=== PATIENT | male | born 1970 | race African-American/Black ===

== ENCOUNTER 2019-03-29 18:45 | Emergency (ER) | payer OTHER ==
[~2019-03-29] VITALS: Ht 175.3 cm; Wt 136.1 kg
[2019-03-29] MEDS ORDERED: UNOBMED (18:56)
[2019-03-29 19:05] VITALS: BP 132/90
--- NOTE | 2019-03-29 19:07 | NUR ---
ED Nurse Note: ambulated in to ED due to increased pain in right wrist and left ankle after fall 2 days ago. pt states that he was at ED and was dx with sprin ankle and wrist but pain increased. +CSM. NAD noted
--- NOTE | 2019-03-29 19:09 | NUR ---
HAND-OFF: Report given to RUTHY Rivera.
[2019-03-29] MEDS ORDERED: Ketorolac 30mg Inj IM ONE (19:30)
--- NOTE | 2019-03-29 20:06 | Emergency Room Report ---
History of Present Illness General Chief Complaint: Pain Source: Patient Present Illness HPI 48 YO Male presents to the ED c/o persistent 8/10 in severity right wrist and left ankle pain. S/p mechanical fall 2 days ago. Pt. went to another ED and had imaging done. Pt. was told he had an ankle and wrist sprain and then only given phi wrap for his wrist. He reports he was not provided with and prescriptions upon discharge, and did not receive a work note. Pt. denies new trauma or fall. Pt. reports worsening of swelling to the right wrist/hand. Denies erythema or bruising. reports intermittent tingling/shooting pain sensation down the left foot. He describes falling forward after his foot got stuck under a rug and straining the top of his foot. pt. reports FOOSH. Denies obvious deformities. walking, palpation or use of his right wrist or left foot exacerbates his pain. Denies neck or back pain. Allergies: Coded Allergies: IODINE (Verified Allergy, Unknown, 03/29/19) Patient History Past Medical History: see triage record Past Surgical History: none Pertinent Family History: none Reviewed Nursing Documentation: PMH: Agreed; PSxH: Agreed Nursing Documentation-PMH Past Medical History: No History, Except For Hx Cardiac Problems: No Hx Hypertension: Yes Hx Pacemaker: No Hx Asthma: No Hx COPD: No Hx Diabetes: No Hx Cancer: No Hx Gastrointestinal Problems: No Hx Dialysis: No History Of Psychiatric Problem: No Hx Neurological Problems: No Hx Cerebrovascular Accident: No Hx Seizures: No Review of Systems All Other Systems: negative except mentioned in HPI Physical Exam Vital Signs Date Time Temp Pulse Resp B/P (MAP) Pulse Ox O2 Delivery O2 Flow Rate FiO2 03/29/19 18:52 98.1 75 16 132/90 (104) 98 Room Air Sp02 EP Interpretation: reviewed, normal General Appearance: no apparent distress, alert, GCS 15, non-toxic Head: normocephalic, atraumatic Eyes: bilateral eye normal inspection, bilateral eye PERRL ENT: hearing grossly normal, normal voice Neck: full range of motion Respiratory: lungs clear, normal breath sounds, speaking full sentences Cardiovascular #1: regular rate, rhythm, normal capillary refill Cardiovascular #2: 2+ radial (R), 2+ radial (L), 2+ dorsalis pedis (R), 2+ dorsalis pedis (L) Musculoskeletal: back normal, gait/station normal - compensatory favoring the left leg, normal range of motion, tender - Right wrist ttp, with swelling at the thenar aspect of the right hand. Positive snuff box ttp. pain with attempts to range. moderate TTP to the anterior left ankle, mild swelling noted, no bruising. no obvious deformity. Neurologic: alert, oriented x3, responsive, motor strength/tone normal, sensory intact, speech normal, grossly normal Psychiatric: judgement/insight normal Skin: normal color Medical Decision Making PA Attestation Dr. Knott is my supervising Physician whom patient management has been discussed with. Diagnostic Impression: Primary Impression: Right wrist sprain Qualified Codes: S63.501A - Unspecified sprain of right wrist, initial encounter Additional Impression: Left ankle sprain Qualified Codes: S93.402A - Sprain of unspecified ligament of left ankle, initial encounter ER Course 48 YO Male presents to the ED c/o persistent 8/10 in severity right wrist and left ankle pain. S/p mechanical fall 2 days ago. Pt. went to another ED and had imaging done. Pt. was told he had an ankle and wrist sprain and then only given phi wrap for his wrist. He reports he was not provided with and prescriptions upon discharge, and did not receive a work note. Pt. denies new trauma or fall. Pt. reports worsening of swelling to the right wrist/hand. Denies erythema or bruising. reports intermittent tingling/shooting pain sensation down the left foot. He describes falling forward after his foot got stuck under a rug and straining the top of his foot. pt. reports FOOSH. Denies obvious deformities. walking, palpation or use of his right wrist or left foot exacerbates his pain. Denies neck or back pain. Ddx considered but are not limited to Fracture, dislocation, contusion, Sprain/ Strain/Spasm, scaphoid fx. just to name a few. Vital signs: are WNL, pt. is afebrile H&PE are most consistent with musculoskeletal injury will assess with x-ray for scaphoid injury as pt. has snuff box ttp and had a FOOSH. ORDERS: - X-ray Right hand 4 views - negative for fx, Dislocation, or significant soft tissue injury, per preliminary read in ED, and signed by ANDREWS Lange , my supervising physician has reviewed, and agrees with my interpretation. ED INTERVENTIONS: - Toradol IM - Right thumb spika splint applied by auto tech. Pt. remains neurovascularly intact. - Left short leg posterior splint applied by auto tech. Pt. remains neurovascularly intact. --Patient is provided with crutches and instructed on their use DISCHARGE: At this time pt. is stable for d/c to home. Will provide printed patient care instructions, and any necessary prescriptions. Care plan and follow up instructions have been discussed with the patient prior to discharge. Other X-Ray Diagnostic Results Other X-Ray Diagnostic Results : X-Ray ordered: Right hand # of Views/Limited Vs Complete: 4 View Indication: Pain EP Interpretation: Yes PA Xray: Interpretation reviewed, by supervising MD, and agrees with findings. Interpretation: no dislocation, no soft tissue swelling, no fractures Impression: No acute disease Electronically Signed by: Dafne Lange PA-C Last Vital Signs Date Time Temp Pulse Resp B/P (MAP) Pulse Ox O2 Delivery O2 Flow Rate FiO2 03/29/19 19:05 98.1 78 16 132/90 98 Room Air Disposition: HOME, SELF-CARE Condition: Stable Scripts Ibuprofen* (MOTRIN*) 600 Mg Tablet 600 MG ORAL THREE TIMES A DAY, #30 TAB 0 Refills Prov: Dafne Lange 03/29/19 Referrals: [facility] (PCP) Departure Forms: Return to Work Return to Work Date: Apr 03, 2019 Work Restrictions: No Heavy Lifting, No Prolonged Standing, Desk Work Only Other Restrictions: light duty. May return Sooner if Symptoms have resolved. Patient Instructions: Ankle Sprain, [id number], Scaphoid Fracture, Wrist, Wrist Sprain Additional Instructions: Take medications as directed. Follow up with an [facility] in 3-5 days, even if your symptoms have resolved. If symptoms persist more advanced or repeat imaging may be required at the discretion of your PCP or Ortho Specialist. --Please review list of primary care clinics, if you do not already have a primary care provider who can give you an Orthopedic Referral. Return sooner to ED if new symptoms occur, or current symptoms become worse. - Please note that this Emergency Department Report was dictated using Embran[employer] operator technology software, occasionally this can lead to erroneous entry secondary to interpretation by the dictation equipment. Dafne Lange Mar 29, 2019 20:06
[2019-03-29] MEDS ORDERED: IBUPROFEN600 MG ORAL (20:07)
--- NOTE | 2019-03-29 20:11 | NUR ---
ED Nurse Note: Patient cleared for discharge, no s/s of acute distress. Patient ID band removed, Patient verbalized understanding of discharge instructions. Patient also returned demo for crutch use. Patient departed with all belongings.
[2019-03-29 20:15] VITALS: BP 132/90
--- NOTE | 2019-03-30 14:15 | Diagnostic Imaging Report ---
Indication: Right hand pain Technique: 3 views right hand Comparison: none Findings: No acute fractures. No dislocations. The joint spaces are preserved. Impression: Negative
== END 2019-03-29 20:15 | disposition home or self-care (01) ==
LOC: EMR 19:23
DX: S63.501A Unspecified sprain of right wrist, initial encounter (principal); S93.402A Sprain of unspecified ligament of left ankle, initial encounter; I10 Essential (primary) hypertension; Z91.041 Radiographic dye allergy status; W01.0XXA Fall on same level from slipping, tripping and stumbling without subsequent striking against object, initial encounter; Y92.9 Unspecified place or not applicable
CPT/HCPCS: 29130; 29515; 73130; 96372; 99284; J1885

== ENCOUNTER 2020-09-26 23:29 | Emergency (ER) | payer OTHER ==
[~2020-09-26] VITALS: Ht 175.3 cm; Wt 120.2 kg
[~2020-09-26 23:29] MED LIST: IBUPROFEN600 MG ORAL; UNOBMED
[2020-09-27] MEDS ORDERED: AUGMENTIN 875-1 EAC1 ORAL (00:08)
[2020-09-27] MEDS ORDERED: HYDROCODON-ACE1 EA15 ORAL (00:08)
--- NOTE | 2020-09-27 00:08 | Emergency Room Report ---
History of Present Illness General Chief Complaint: Sore Throat Source: Patient Present Illness HPI This is a 50-year-old male with a history of diabetes. He presents with chief complaint of sore throat. Onset for 2 days. Started yesterday has a mild sore throat but now is very painful today. Hard time swallowing. Pain is 9 out of 10. No fever chills but no cough or congestion. Mostly localized to the right side. Allergies: Coded Allergies: IODINE (Verified Allergy, Unknown, 03/29/19) COVID-19 Screening Contact w/high risk pt: No Experienced COVID-19 symptoms?: No COVID-19 Testing performed PROFESSOR OF BUSINESS: No Patient History Past Medical History: see triage record, old chart reviewed, DM Past Surgical History: none Pertinent Family History: none Social History: Denies: smoking Immunizations: other Reviewed Nursing Documentation: PMH: Agreed; PSxH: Agreed Nursing Documentation-PMH Hx Cardiac Problems: No Hx Hypertension: Yes Hx Pacemaker: No Hx Asthma: No Hx COPD: No Hx Diabetes: No Hx Cancer: No Hx Gastrointestinal Problems: No Hx Dialysis: No Hx Neurological Problems: No Hx Cerebrovascular Accident: No Hx Seizures: No Review of Systems Eye: Denies: eye pain, blurred vision ENT: Reports: throat pain, throat swelling; Denies: ear pain, nose congestion Respiratory: Denies: cough, shortness of breath Cardiovascular: Denies: chest pain, palpitations Gastrointestinal: Denies: abdominal pain, diarrhea, nausea, vomiting Musculoskeletal: Denies: back pain, joint pain Skin: Denies: rash Neurological: Denies: headache, numbness Endocrine: Denies: increased thirst, increased urine Hematologic/Lymphatic: Denies: easy bruising All Other Systems: negative except mentioned in HPI Physical Exam Vital Signs Date Time Temp Pulse Resp B/P (MAP) Pulse Ox O2 Delivery O2 Flow Rate FiO2 09/26/20 23:50 99.3 119 18 140/86 (104) 98 Room Air Vitals with tachycardia Sp02 EP Interpretation: reviewed, normal General Appearance: well appearing, no apparent distress, alert, obese Head: normocephalic, atraumatic Eyes: bilateral eye PERRL, bilateral eye EOMI ENT: hearing grossly normal, uvula midline, tonsillar swelling, pharyngeal er ythema, tonsillar exudate Neck: full range of motion, supple, no meningismus Respiratory: chest non-tender, lungs clear, normal breath sounds Cardiovascular #1: regular rate, rhythm, no murmur Gastrointestinal: normal bowel sounds, non tender, no mass, no organomegaly, no bruit, non-distended Musculoskeletal: back normal, normal range of motion, gait/station normal Psychiatric: mood/affect normal Medical Decision Making Diagnostic Impression: Primary Impression: Acute tonsillitis Qualified Codes: J03.90 - Acute tonsillitis, unspecified ER Course Patient with acute tonsillitis. Most likely strep in nature. No evidence of peritonsillar abscess, retropharyngeal abscess or Vicente angina. Last Vital Signs Date Time Temp Pulse Resp B/P (MAP) Pulse Ox O2 Delivery O2 Flow Rate FiO2 09/26/20 23:50 99.3 119 18 140/86 (104) 98 Room Air Status: improved Disposition: HOME, SELF-CARE Condition: Stable Scripts Hydrocodone/Acetaminophen 5-325* (HYDROCODONE/ACETAMINOPHEN 5-325*) 1 Each Tablet 1 TAB ORAL Q6H PRN for For Pain, #15 TAB 0 Refills Prov: Johnathan Hernandez MD 09/27/20 Amoxicillin/Potassium Clav 875-125* (AUGMENTIN 875-125 TABLET*) 1 Each Tablet 1 TAB ORAL TWICE A DAY, #14 TAB Prov: Johnathan Hernandez MD 09/27/20 Referrals: [facility] (PCP) Patient Instructions: Strep Throat Additional Instructions: Increase fluids. Salt water gargle. Follow-up with your doctor in 7 days. Return if worse. Johnathan Hernandez MD Sep 27, 2020 00:08
[2020-09-27] MEDS ORDERED: Augmentin 875mg Tab ORAL ONE (00:15)
[2020-09-27 00:24] VITALS: BP 140/86
--- NOTE | 2020-09-27 00:25 | NUR ---
pt aox4 given and understands discharge instructions. ambulatory out w steady gait
== END 2020-09-27 00:25 | disposition home or self-care (01) ==
LOC: EMR 23:40
DX: J03.90 Acute tonsillitis, unspecified (principal); I10 Essential (primary) hypertension; Z88.8 Allergy status to other drugs, medicaments and biological substances
CPT/HCPCS: J7512; Z7502; 99282

== ENCOUNTER 2020-09-28 04:26 | Emergency (ER) | payer OTHER ==
[~2020-09-28] VITALS: Ht 175.3 cm; Wt 120.2 kg
[~2020-09-28 04:26] MED LIST changes: +AUGMENTIN 875-1 EAC1 ORAL; +HYDROCODON-ACE1 EA15 ORAL
[2020-09-28 04:56] VITALS: BP 136/89
--- NOTE | 2020-09-28 04:57 | NUR ---
Pte came to ER via EMS c/o sore throat since a few days ago . Pte was here in the ER yesterday for the same reason. Safety and comfort measures taken: bed set in low position, frequent rounds, call light within reach. Will continue monitoring the patient during the sift.
[2020-09-28] MEDS ORDERED: Piperacillin/Tazobactam 3.375 GM in NS 110 ML IVPB ONE (05:15)
[2020-09-28] MEDS ORDERED: dexAMETHasone 10mg/ml Inj IV ONE (05:15)
[2020-09-28] MEDS ORDERED: Ketorolac 30mg Inj IV ONE (05:15)
[2020-09-28] MEDS ORDERED: Isovue-M 300 15ml INJ ONE (05:15)
--- NOTE | 2020-09-28 05:28 | Emergency Room Report ---
History of Present Illness General Chief Complaint: Sore Throat Source: Patient (Johnathan Hernandez MD) Present Illness HPI This is a 50-year-old male with a history of diabetes. I saw him 2 days ago for the same complaint. He presents with chief complaint of sore throat. Is been ongoing for 3 days now. Pain is getting worse. Pain is 9 out of 10. Worse with laying flat. Better with sitting up. When he lay flat he felt like he cannot breathe. He felt like his throat was closing up. He had fever and chills but that resolved now. He is now having cough. No other trauma. No drooling. (Johnathan Hernandez MD) Allergies: Coded Allergies: IODINE (Verified Allergy, Unknown, 03/29/19) COVID-19 Screening Contact w/high risk pt: No Experienced COVID-19 symptoms?: No COVID-19 Testing performed COLORING ROOM MAN: No (Johnathan Hernandez MD) Patient History Past Medical History: see triage record, old chart reviewed, DM Past Surgical History: other Pertinent Family History: none Social History: Denies: smoking Immunizations: other Reviewed Nursing Documentation: PMH: Agreed; PSxH: Agreed (Johnathan Hernandez MD) Nursing Documentation-PMH Hx Cardiac Problems: No Hx Hypertension: Yes Hx Pacemaker: No Hx Asthma: No Hx COPD: No Hx Diabetes: Yes Hx Cancer: No Hx Gastrointestinal Problems: No Hx Dialysis: No Hx Neurological Problems: No Hx Cerebrovascular Accident: No Hx Seizures: No (Johnathan Hernandez MD) Review of Systems Eye: Denies: eye pain, blurred vision ENT: Reports: throat pain, throat swelling; Denies: ear pain, nose congestion Respiratory: Denies: cough, shortness of breath Cardiovascular: Denies: chest pain, palpitations Gastrointestinal: Denies: abdominal pain, diarrhea, nausea, vomiting Musculoskeletal: Denies: back pain, joint pain Skin: Denies: rash Neurological: Denies: headache, numbness Endocrine: Denies: increased thirst, increased urine Hematologic/Lymphatic: Denies: easy bruising All Other Systems: negative except mentioned in HPI (Johnathan Hernandez MD) Physical Exam Vital Signs Date Time Temp Pulse Resp B/P (MAP) Pulse Ox O2 Delivery O2 Flow Rate FiO2 09/28/20 04:56 98.3 79 17 136/89 98 Room Air Vitals normal Sp02 EP Interpretation: reviewed, normal General Appearance: well appearing, no apparent distress, alert, obese Head: normocephalic, atraumatic Eyes: bilateral eye PERRL, bilateral eye EOMI ENT: hearing grossly normal, tonsillar swelling, pharyngeal erythema, tonsillar exudate, other - Is no trismus. More significant soft tissue edema of the di stal oropharynx. Also has mild tonsillar exudates. Neck: full range of motion, supple, no meningismus Respiratory: chest non-tender, lungs clear, normal breath sounds Cardiovascular #1: regular rate, rhythm, no murmur Gastrointestinal: normal bowel sounds, non tender, no mass, no organomegaly, no bruit, non-distended Musculoskeletal: back normal, normal range of motion, gait/station normal Psychiatric: mood/affect normal (Johnathan Hernandez MD) Medical Decision Making Diagnostic Impression: Primary Impression: Acute tonsillitis Qualified Codes: J03.90 - Acute tonsillitis, unspecified Additional Impressions: Pharyngitis Qualified Codes: J02.9 - Acute pharyngitis, unspecified Pharyngeal mass Hypokalemia Peritonsillar abscess ER Course Patient with worsening pharyngitis/tonsillitis. He has more soft tissue edema and erythema then when I saw him 2 days ago. He has no trismus however. Laboratory data ordered. Steroid and antibiotics ordered. I will now order a CT neck to rule out any abscess. Patient listed iodine as an allergy but he said that when he had IV contrast many years ago, he felt hot. He has no respiratory issue with it or any hives with it. No tongue edema. (Johnathan Hernandez MD) ER Course Patient signed out by Dr. Hernandez at [address] results and final disposition. Please refer to his note for complete history and physical. Patient was given IV antibiotics and steroids by prior attending. Patient is mildly hypokalemic with potassium of 3.3. 10 mEq of IV potassium chloride have been given. Patient CT demonstrates enlarged right palate teen tonsil with possible small abscess, ill-defined soft tissue fullness along the right mucosal pharyngeal space and a masslike structure the right mucosal pharyngeal space which is causing a mass-effect to the airway. This may represent inflammatory or infectious process or a mass versus neoplasm. Epiglottis is prominent. Patient was reevaluated at 8:45 AM. He states that he feels improved after the treatments given to him in the emergency room. Patient is awake and alert and in no acute distress. I spoke with Dr. Cantu from [facility] ED he will be accepting the transfer to [facility] that has ENT. ALS transfer pending ambulance arrival. Laboratory Tests Test 09/28/20 05:23 White Blood Count 16.1 K/UL (4.8-10.8) H Red Blood Count 4.73 M/UL (4.70-6.10) Hemoglobin 13.0 G/DL (14.2-18.0) L Hematocrit 39.7 % (42.0-52.0) L Mean Corpuscular Volume 84 FL (80-99) Mean Corpuscular Hemoglobin 27.5 PG (27.0-31.0) Mean Corpuscular Hemoglobin Concent 32.7 G/DL (32.0-36.0) Red Cell Distribution Width 13.6 % (11.6-14.8) Platelet Count 292 K/UL (150-450) Mean Platelet Volume 7.3 FL (6.5-10.1) Neutrophils (%) (Auto) 67.0 % (45.0-75.0) Lymphocytes (%) (Auto) 24.3 % (20.0-45.0) Monocytes (%) (Auto) 7.9 % (1.0-10.0) Eosinophils (%) (Auto) 0.1 % (0.0-3.0) Basophils (%) (Auto) 0.7 % (0.0-2.0) Sodium Level 137 MMOL/L (136-145) Potassium Level 3.3 MMOL/L (3.5-5.1) L Chloride Level 102 MMOL/L (98-107) Carbon Dioxide Level 25 MMOL/L (21-32) Anion Gap 10 mmol/L (5-15) Blood Urea Nitrogen 11 mg/dL (7-18) Creatinine 0.9 MG/DL (0.55-1.30) Estimated Glomerular Filtration Rate > 60 mL/min (>60) Glucose Level 139 MG/DL (74-106) H Calcium Level 9.6 MG/DL (8.5-10.1) (Estee Jones M.D.) Rhythm Strip Diag. Results Rhythm Strip Time: 08:49 EP Interpretation: yes - Estee Jones MD Rate: 102 bpm Rhythm: no PVC's, no ectopy, other - sinus tachycardia (Estee Jones M.D.) Last Vital Signs Date Time Temp Pulse Resp B/P (MAP) Pulse Ox O2 Delivery O2 Flow Rate FiO2 09/28/20 04:56 98.3 79 17 136/89 98 Room Air Status: improved (Johnathan Hernandez MD) Disposition: ADMITTED INPATIENT - ICU vs SDU Condition: Critical Physician Consult: Dr. Cantu at 850am (Estee Jones M.D.) Referrals: NOT CHOSEN [facility]/,REFERRING (PCP) Additional Instructions: Please note that this report is being documented using Take the Interview technology. This can lead to erroneous entry secondary to incorrect interpretation by the dictating instrument. Johnathan Hernandez MD Sep 28, 2020 05:28 Estee Jones M.D. Sep 28, 2020 08:50
[2020-09-28] MEDS ORDERED: DiphenhydrAMINE 50mg/ml Inj IVP ONE (05:30)
[2020-09-28 05:38] LABS: BASOPHILS % (AUTO) 0.7 % (0.0-2.0); EOSINOPHILS % (AUTO) 0.1 % (0.0-3.0); HEMATOCRIT 39.7 % (42.0-52.0); LYMPHOCYTES % (AUTO) 24.3 % (20.0-45.0); MEAN CORPUSCULAR VOLUME 84 FL (80-99); MONOCYTES % (AUTO) 7.9 % (1.0-10.0); PLATELET COUNT 292 K/UL (150-450); RED BLOOD COUNT 4.73 M/UL (4.70-6.10); RED CELL DISTRIBUTION WIDTH 13.6 % (11.6-14.8); WHITE BLOOD COUNT 16.1 K/UL (4.8-10.8)
[2020-09-28 05:48] LABS: ANION GAP 10 mmol/L (5-15); BLOOD UREA NITROGEN 11 mg/dL (7-18); CALCIUM 9.6 MG/DL (8.5-10.1); CARBON DIOXIDE 25 MMOL/L (21-32); CHLORIDE 102 MMOL/L (98-107); CREATININE 0.9 MG/DL (0.55-1.30); POTASSIUM 3.3 MMOL/L (3.5-5.1); SODIUM 137 MMOL/L (136-145)
--- NOTE | 2020-09-28 06:22 | NUR ---
Patient in bed in comfortable position and stable condition. All vitals signs were taken and reported. Urine and blood were collected and sent them to the lab. All medications were administered without adverse reaction. pte went to a CT. Will continuw to monitor.
--- NOTE | 2020-09-28 06:55 | NUR ---
Pte return from CT . Safety and comfort measures taken. Will continue to monitor.
--- NOTE | 2020-09-28 07:53 | Diagnostic Imaging Report ---
EXAM: CT Neck With Intravenous Contrast CLINICAL HISTORY: PAIN TECHNIQUE: Axial computed tomography images of the neck with intravenous contrast. CTDI is 14.60 mGy and DLP is 420.00 mGy-cm. One or more of the following dose reduction techniques were used: automated exposure control, adjustment of the mA and/or kV according to patient size, use of iterative reconstruction technique. COMPARISON: No relevant imaging studies available. FINDINGS: Oropharynx: The right palatine tonsil is enlarged containing ill- defined hypoattenuating structure measuring 1.9 cm x 0.6 m (axial image 21-33, series 3). The ill-defined soft tissue fullness extends caudally along the right mucosal pharyngeal space to the level of the arytenoid cartilages. At the level of the hyoid, there is a masslike structure at the right mucosal pharyngeal space (axial image 43, series 3) measuring 3. 5 cm x 2.3 cm extending laterally past the posterior thyroid cartilage (axial image 46, series 3). This is causing mass-effect to the airway. Bilateral punctate calcifications in the palatine tonsils. Hypopharynx: See above. Larynx: Unremarkable. The epiglottis appears prominent. Trachea: Unremarkable. Retropharyngeal space: Unremarkable. Submandibular/parotid glands: Parotid calcification in the left parotid gland. Remaining glands are normal in size. Thyroid: Unremarkable. No enlarged or calcified nodules. Bones/joints: No acute fracture. Multilevel cervical spine degenerative changes. Soft tissues: Unremarkable. Vasculature: No acute findings. Lymph nodes: Prominent bilateral cervical lymph nodes. Lung apices: Unremarkable as visualized. Base of skull: Left maxillary mucous retention cyst. Remaining paranasal sinuses are well aerated. Visualized brain parenchyma is unremarkable. IMPRESSION: 1. Enlarged right palatine tonsil containing an ill-defined hypoattenuating structure which may represent a small abscess. The ill- defined soft tissue fullness extends caudally along the right mucosal pharyngeal space as described above. There is a masslike structure at the right mucosal pharyngeal space measuring 3.5 cm x 2.3 cm, which is causing mass-effect to the airway. This may represent inflammatory/infectious process but underlying mass/neoplasm cannot be excluded. Recommend correlating with direct visualization. 2. Epiglottis is prominent. <MYCVCSECTION> Communications: 09/28/20 07:57 Call Doctor Regarding Above results, called Dr. Kulkarni on 09/28 07:57 (-08:00)
[2020-09-28 08:45] VITALS: BP 130/75
--- NOTE | 2020-09-28 08:46 | NUR ---
0730: taking over pt care from Salvatore BLISS. -pt medicated per eMAR, KCl given IV for K 3.3 -pt on continuous cardiac/O2 monitor. VSS. will continue to monitor. -pt states here recently for throat swelling/pain. taking medications at home with no relief. pt states able to breathe & swallow today, improvement from past few days. pt pmh pre-DM, HTN. 0745: pt denies pain. pt sitting in bed. pt on monitor, will continue to monitor. 0845: vitals updated. pt to be transferred for observation/further workup. pt denies pain at this time 0850: pt signed transfer paperwork.
[2020-09-28 09:55] VITALS: BP 132/77
[2020-09-28 11:56] VITALS: BP 117/64
--- NOTE | 2020-09-28 11:57 | NUR ---
als ride for pt to transfer.
[2020-09-28 12:00] VITALS: BP 117/64
--- NOTE | 2020-09-28 12:13 | NUR ---
called report to farshad stewart at [facility].
== END 2020-09-28 12:00 | disposition short-term general hospital (02) ==
LOC: EMR 05:11 → EDBEDREQ 08:04 → EMR 12:00
DX: J03.90 Acute tonsillitis, unspecified (principal); E87.6 Hypokalemia; J39.2 Other diseases of pharynx; I10 Essential (primary) hypertension; E11.9 Type 2 diabetes mellitus without complications; Z88.8 Allergy status to other drugs, medicaments and biological substances
CPT/HCPCS: 36415; 70491; 80048; 85025; 96361; 96365; 96375; J1200; J1885; J2543; J3480; J7030; Q9967; Z7502; 99285